=== PATIENT | male | born 1960 | race Caucasian/White ===

== ENCOUNTER 2018-02-05 06:13 | Day surgery (SDC) | payer MEDICARE, MEDICAID ==
[2018-01-27 07:34] VITALS: BMI 28.1
[2018-02-05 07:08] VITALS: RESP 18
[2018-02-05] MEDS ORDERED: Lidocaine 1% w Epi 1:100,000 Inj ONE (07:20)
[2018-02-05] MEDS ORDERED: Bupivacaine 0.5% Inj(30mL) ONE (07:20)
[2018-02-05] MEDS ORDERED: Propofol 10 mg/ml Inj (20 ML) ONE (07:25)
[2018-02-05] MEDS ORDERED: Midazolam 2 MG/2 ML VIAL ONE (07:26)
[2018-02-05] MEDS ORDERED: Lidocaine 2% Inj (20ml) ONE (07:27)
[2018-02-05] MEDS ORDERED: Oxycodone/Acetaminophen 5/325 mg Tab PO PRN (07:31)
--- NOTE | 2018-02-05 07:43 | CP.PCM.PN ---
Subjective - Date & Time of Evaluation Date of Evaluation: 02/05/18 Time of Evaluation: 07:41 - Subjective Subjective: [place] [employer] patient report reviewed. Rx for Percocet 5/325mg #60 last given on . Patient counseled on the risks of addiction, physical or psychological dependence, and overdose associated with opioid drugs and the danger of taking opioid drugs with alcohol and other central nervous system depressants, and cautioned patient on storage and disposal. Objective - Vital Signs/Intake and Output Vital Signs (last 24 hours): Temp Pulse Resp BP Pulse Ox 98.4 F 92 H 18 109/55 L 99 02/05/18 06:25 02/05/18 06:25 02/05/18 06:25 02/05/18 06:25 02/05/18 06:25 - Medications Medications: Current Medications Oxycodone/Acetaminophen (Percocet 5/325 Mg Tab) 1 tab PO Q4H PRN PRN Reason: Pain, moderate (4-7) Stop: 02/08/18 07:32
--- NOTE | 2018-02-05 09:18 | PCM.SURG1 ---
Surgeon's Initial Post Op Note - Surgeon's Notes Surgeon: Dr. Stoney Teran MD Registered Nurse Supervisor: Yolanda Johnson PA-C Type of Anesthesia: General Endo Anesthesia Administered By: Dr. Crockett Pre-Operative Diagnosis: Right knee medial meniscus tear Operative Findings: see full note Post-Operative Diagnosis: right knee plica Operation Performed: right knee arthroscopy with excision of plica and synovectomy Specimen/Specimens Removed: none Estimated Blood Loss: EBL {In ML}: 5 Blood Products Given: N/A Drains Used: No Drains Post-Op Condition: Fair Date of Surgery/Procedure: 02/05/18 Time of Surgery/Procedure: :18
[2018-02-05] MEDS ORDERED: HYDROmorphone 0.5 mg/0.5 ml ISec IVP PRN (09:22)
[2018-02-05] MEDS ORDERED: Lactated Ringer's 1,000 ML IV SCH (09:30)
[2018-02-05] MEDS ORDERED: HYDROmorphone 0.5 mg/0.5 ml ISec ONE (09:43)
[2018-02-05] MEDS ORDERED: HYDROmorphone 0.5 mg/0.5 ml ISec IVP ONE (09:46)
[2018-02-05] MEDS ORDERED: Oxycodone/Acetaminophen 5/325 mg Tab ONE (10:12)
[2018-02-05] MEDS ORDERED: Oxycodone/Acetaminophen 5/325 mg Tab PO ONE (10:14)
[2018-02-05 11:02] VITALS: TEMP 97.5
[2018-02-05 11:31] VITALS: BP 122/69; PULSE 83; O2SAT 99
--- NOTE | 2018-02-05 20:08 | OP ---
PROCEDURE DATE: 02/05/2018 PREOPERATIVE DIAGNOSIS: Right knee medial meniscal tear. POSTOPERATIVE DIAGNOSIS: Right knee medial plica and synovitis. PROCEDURE: Right knee arthroscopy with excision of plica and partial synovectomy. SURGEON: Stoney Teran MD. GROCERY STORE CLERK: Dr. Teran was assisted by France Ashton, the physician cardiovascular physician assistant. Yecenia Ashton was scrubbed and present throughout the entire case and assisted in patient positioning, manipulation of the leg, and closure. TYPE OF ANESTHESIA: General. COMPLICATIONS: None. ESTIMATED BLOOD LOSS: 5 mL. INDICATIONS FOR PROCEDURE: This is a 57-year-old gentleman who presented with complaints of right knee pain. Clinical examination was consistent with medial joint line tenderness to palpation, pain at the extremes of knee flexion. MRI examination was consistent with tear of the body of the medial meniscus. After a period of failed nonsurgical management, recommendation was for a right knee arthroscopy. The risks, benefits, and alternatives of the procedure were discussed with the patient and informed consent was obtained. DESCRIPTION OF PROCEDURE: After the surgical site was signed and verified in the preoperative holding area, the patient was taken to the operating room and placed supine on the operating room table. After administration of general anesthesia, the patient received 2 g of Ancef IV. Tourniquet was placed about the right thigh. Care was taken to make sure all bony prominences and nerves were well padded and protected and the right lower extremity was prepped and draped in usual sterile fashion. Bony landmarks were identified about the right knee and portal sites were injected with a total of 10 mL of 1% lidocaine with epi. An anterolateral arthroscopy portal was established and an arthroscope was inserted into the knee joint. Patellofemoral articulation was evaluated. 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 The medial and lateral gutters as well as well as suprapatellar recess were noted to be free of any loose bodies, however, medial suprapatellar plica was identified and through an anteromedial portal and using a full-radius shaver, this plica was excised. At this point, the medial compartment was evaluated and through an anteromedial portal, medial meniscus was probed and no obvious tearing was appreciated at the anterior posterior horns or the body of the meniscus. The meniscus appeared to be stable. Chondral surfaces of the medial compartment have some minimal changes. The patient was noted to have what appeared to be some hypertrophic synovial tissue medially between the medial femoral condyle and the medial meniscus. Using a full-radius shaver, this was excised. At this point, the intercondylar notch was evaluated. The ACL was well visualized, probed and appeared to be intact. The PCL was also visualized and appeared to be intact. Next, the lateral compartment was evaluated. Lateral meniscus was probed and was noted to be intact. Intraarticular portion of the popliteus tendon was visualized and appeared to be intact. Chondral surfaces of the lateral compartment were noted to have minimal changes. Satisfied, the knee joint was irrigated through the arthroscopic cannula and all instruments were removed. All portal sites were closed using interrupted 3-0 Vicryl suture and Dermabond for the skin. A sterile dressing was applied. The patient was awakened from the procedure and taken to recovery room in stable condition. Stoney Teran MD
== END 2018-02-05 14:30 | disposition home or self-care (01) ==
LOC: SDS 06:13 → EDSEX 07:30 → SDS 14:30
PROVIDERS: ATTEND Orthopaedic Surgery
DX: M65.9 Synovitis and tenosynovitis, unspecified (principal); M67.51 Plica syndrome, right knee; I10 Essential (primary) hypertension; E11.9 Type 2 diabetes mellitus without complications; Z94.4 Liver transplant status
CPT/HCPCS: 29875; 97116; 97161; G8978; G8980; J0690; J1170; J2250; J2704; J3010; J7120 ×2